=== PATIENT | male | born 1940 | race Caucasian/White ===

== ENCOUNTER → 2017-05-23 | Outpatient (CLI) | payer MEDICARE ==
[~2017-05-23] MED LIST: AGGRENOX PO; BUPR-128 PO; CITA-156 PO; EZE10 PO; FLUO-201 PO
== END ==
LOC: LAB 15:34
PROVIDERS: ATTEND Urology
DX: R97.20 Elevated prostate specific antigen [PSA] (principal)
CPT/HCPCS: 36415; 84153

== ENCOUNTER → 2017-06-08 | Outpatient (CLI) | payer MEDICARE ==
--- NOTE | 2017-06-08 14:19 | RADIOLOGY IMAGING REPORT ---
FACILITY: [facility] [place] PATIENT NAME: Raymond Pugh : 1940 MR: [id number] V: [id number] EXAM DATE: ORDERING PHYSICIAN: SHREYA BLACKBURN TECHNOLOGIST: Location: [facility] - [place] Patient: Raymond Pugh : 1940 Visit/Account:[id number] Date of Sevice: 06/08/2017 SCROTAL ULTRASOUND INDICATION: Right epididymal mass COMPARISON: None available. FINDINGS: Right testicle measures 4.8 x 2.5 x 1.8 cm in cc, AP, and transverse dimensions respectively. There is normal arterial and venous blood flow. Small hydrocele No varicocele identified. There is a simple appearing 7 mm right epididymal head cyst. Left testicle measures 4.7 x 2.4 x 2.9 cm in cc, AP, and transverse dimensions respectively. Two, pu nctate microcalcifications are noted not associated with any mass or echogenic abnormality. Left-angie ed varicocele is noted exacerbated with Valsalva. There is normal arterial and venous blood flow. No evidence of hydrocele. Left epididymis is unremarkable measuring 6.5 mm IMPRESSION: 1. There is a simple appearing 7 mm right epididymal head cyst. 2. Left-sided varicocele Report Dictated By: Alex Clarke MD at 06/08/2017 2:10 PM Report E-Signed By: Alex Clarke MD at 06/08/2017 2:13 PM WSN:[email or web address]
== END ==
LOC: US 01:59
PROVIDERS: ATTEND Urology
DX: N50.3 Cyst of epididymis (principal); I86.1 Scrotal varices
CPT/HCPCS: 76870

== ENCOUNTER → 2017-08-16 | Outpatient (REF) ==
[~2017-08-16] MED LIST changes: +ASPI-1471 PO; +BUPR-472 PO; +CYAN25004 PO; +DOXA8TAB PO; +FENO160T11 PO; +FINA5TAB67 PO; +MELA1TAB2 PO; +MULT-1203 PO; +OMEG-11 PO; +OMEG1CAP66 PO; +OMEP40CA48 PO; +VENL75CA58 PO
[2017-08-16 09:42] LABS: LDL CHOLESTEROL 93 mg/dl
== END ==
DX: Z02.9 Encounter for administrative examinations, unspecified (principal)

== ENCOUNTER → 2017-11-08 | Outpatient (CLI) | payer MEDICARE ==
[~2017-11-08] MED LIST changes: +RANI-366 PO
--- NOTE | 2017-11-08 10:47 | RADIOLOGY IMAGING REPORT ---
[place] [facility] [place] NAME: Raymond Pugh : 1940 MR: [id number] V: [id number] EXAM DATE: ORDERING PHYSICIAN: SEBAS KAHN TECHNOLOGIST: Location: [facility] Patient: Raymond Pugh : 1940 Visit/Account:[id number] Date of Sevice: 11/08/2017 CAROTID HISTORY: Bilateral carotid disease COMPARISON: August 23, 2016 FINDINGS: Grayscale, duplex and color Doppler interrogation of the extracranial carotid and vertebral arteries was performed bilateral. On the right, peak systolic velocities within the common and internal carotid arteries are 135 and 21 8 cm/sec respectively. There are scattered hard plaques identified in the right common carotid arter y. There is a moderate amount of mixed hard and soft plaque at the right carotid bulb extending into the right internal and external carotid arteries. Antegrade flow within the common, internal and ex ternal carotid arteries as well as vertebral artery. ICA/CCA ratio 1.8. On the left, peak systolic velocities within the common and internal carotid arteries are 184 and 119 cm/sec respectively. Scattered hard plaques in the left common carotid artery. There is mixed hard and soft plaque in the distal left common carotid artery left carotid bulb extending into the left i nternal carotid artery and to lesser extent left external carotid artery. Antegrade flow within the common, internal and external carotid arteries as well as vertebral artery. ICA/CCA ratio 0.7. IMPRESSION: There are scattered plaques in the common carotid arteries bilaterally with a moderate amount of mixe d hard and soft plaque at the carotid bulbs extending into the internal and external carotid arteries bilaterally. Right side is more affected than the left. Elevated peak systolic velocity of 218 cm/ s in the right ICA is consistent with a 50-69% category stenosis similar to the prior study. The pea k systolic velocity in the left ICA is consistent with less than 50% stenosis similar to the prior st udy Velocity criteria are extrapolated from diameter data as defined by the Society of Radiologists in Ul trasound Consensus Conference Radiology 2003; 229;340-346 Report Dictated By: Bonny Maxewll MD at 11/08/2017 10:30 AM Report E-Signed By: Bonny Maxwell MD at 11/08/2017 10:43 AM WSN:[email or web address]
== END ==
LOC: US 01:38
PROVIDERS: ATTEND Internal Medicine Cardiovascular Disease
DX: I65.23 Occlusion and stenosis of bilateral carotid arteries (principal)
CPT/HCPCS: 93880

== ENCOUNTER → 2017-12-16 | Outpatient (CLI) | payer MEDICARE | LOC: LAB 10:26 | PROVIDERS: ATTEND Urology | DX: R97.20 Elevated prostate specific antigen [PSA] (principal) | CPT/HCPCS: 36415; 84153 ==

== ENCOUNTER 2018-04-25 17:53 | Emergency (ER) | payer MEDICARE ==
[~2018-04-25 17:53] MED LIST changes: +CHOL10005 PO; +ESOM20CA31 PO; +ESOM40CA42 PO; +FLUT16SP19 NS; +OLM20 PO; +PNEU0.5D3 IM
--- NOTE | 2018-04-25 18:13 | ER Report ---
History and Physical Time Seen By MD: 18:13 Hx. of Stated Complaint: RIGHT SHOULDER INJURY HPI/ROS CHIEF COMPLAINT: Right shoulder injury HISTORY OF PRESENT ILLNESS: This is a 69-year-old male. Injured his right shoulder doing pull-ups. Pain anterior shoulder, worsens with rotation and forward flexion of the shoulder. Denies any numbness in the arm or hand. No history of shoulder problems in the past. Allergies: Coded Allergies: atorvastatin (Unverified Allergy, Unknown, 04/25/18) oxycodone (Unverified Allergy, Unknown, 04/25/18) propoxyphene (Unverified Allergy, Unknown, 04/25/18) acetaminophen (Verified Adverse Reaction, Unknown, Nausea and vomiting, 04/25/18) Home Meds Active Scripts Hydrocodone Bit/Acetaminophen (HYDROCODON-ACETAMINOPHEN 5-325) 1 Each Tablet, 1 EACH PO Q4H PRN for PAIN, #12 TAB 0 Refills Prov:ALICIA KELLY MD 04/25/18 Esomeprazole Magnesium (NEXIUM) 20 Mg Capsule.dr, 1-2 CAP PO QDAY for 30 Days, #60 CAP Prov:ERIN SHAIKH MD 04/05/18 Venlafaxine Hcl (EFFEXOR XR) 75 Mg Cap.er.24h, 1 CAP PO QDAY for 90 Days, #90 CAP 1 Refill Prov:ERIN SHAIKH MD 02/28/18 Fenofibrate (FENOFIBRATE) 160 Mg Tablet, 1 TAB PO QDAY for 90 Days, #90 TAB 4 Refills Prov:ERIN SHAIKH MD 02/28/18 Bupropion Hcl (WELLBUTRIN XL) 150 Mg Tab.er.24h, 1 TAB PO QDAY for 90 Days, #90 TAB 1 Refill Prov:ERIN SHAIKH MD 02/28/18 Reported Medications Cholecalciferol (Vitamin D3) (VITAMIN D3) Unknown Strength Tablet, 1 TAB PO QDAY, TAB 02/28/18 Olmesartan Medoxomil (BENICAR) 20 Mg Tablet, 1 TAB PO 02/06/18 Doxazosin Mesylate (CARDURA XL) 8 Mg Tab.er.24, 1 TAB PO QAM 08/02/17 Melatonin/Pyridoxine Hcl (B6) (MELATONIN 10 MG TABLET) 1 Each Tab.mphase, 1 TAB PO HS 08/02/17 Finasteride (FINASTERIDE) 5 Mg Tablet, 1 TAB PO QDAY 08/02/17 Discontinued Scripts Fluticasone Prop 50 Mcg Ns (FLONASE 50 MCG NS) 16 Gm [place].susp, 2 SPRAYS NS QDAY for 30 Days, #1 BOT 1 Refill Prov:ERIN SHAIKH MD 03/07/18 Reviewed Nurses Notes: Yes Hx Smoking: No Smoking Status: Former Smoker Constitutional Vital Sign - Last 24 Hours 04/25/18 04/25/18 04/25/18 04/25/18 17:57 17:59 18:08 18:23 Pulse 68 66 70 Resp 16 B/P (MAP) 167/84 167/84 (111) Pulse Ox 90 85 91 04/25/18 04/25/18 04/25/18 04/25/18 18:30 18:53 19:00 19:08 Pulse 78 67 B/P (MAP) 162/77 (105) 171/80 (110) Pulse Ox 85 93 04/25/18 19:13 Pulse 69 Pulse Ox 90 Physical Exam Gen.: Alert, no distress Musculoskeletal: Pain in the anterior shoulder with palpation. Nothing in the posterior shoulder. Nothing over the acromium, spine or clavicle. Has pain with active range of motion, especially with internal rotation and with forward flexion. With passive range of motion there is almost no pain. He has a positive nears and positive Bar sign. Cardiovascular: Normal pulses and cap refill. Neuro: Normal sensation and motor function. Skin: No bruising or rashes or lesions Medical Decision Making EKG/Imaging Imaging Right shoulder, 4 views. HISTORY: Shoulder pain after working out. COMPARISON: None. The acromioclavicular joint is mildly widened. Mild spurring is present along the inferior aspect of the acromioclavicular joint. Small marginal osteophytes, small subchondral cysts, and moderate joint space narrowing are present in the glenohumeral joint. No acute fractures. Small ossifications are present along the lateral tip of the acromion process. Surgical wires are present in the sternum. IMPRESSION: Acromioclavicular spurring which may predispose to supraspinatus impingement. Moderate glenohumeral osteoarthritis. Report Dictated By: Justice De La Cruz MD at 04/25/2018 6:38 PM ED Course/Re-evaluation ED Course Imaging negative as expected. This appears to be a rotator cuff strain. Discussed conservative management of this with the patient. Recommended follow- up with orthopedic surgery for further evaluation. Decision to Disposition Date: Apr 25, 2018 Decision to Disposition Time: 19:27 Depart Departure Latest Vital Signs Vital Signs Date Time Temp Pulse Resp B/P (MAP) Pulse Ox O2 Delivery O2 Flow Rate FiO2 04/25/18 19:13 69 90 04/25/18 19:00 171/80 (110) 04/25/18 17:57 16 Impression: Primary Impression: Rotator cuff strain Condition: Improved Disposition: HOME OR SELF-CARE Referrals: ERIN SHAIKH MD (PCP) New Scripts Hydrocodone Bit/Acetaminophen (HYDROCODON-ACETAMINOPHEN 5-325) 1 Each Tablet 1 EACH PO Q4H PRN for PAIN, #12 TAB 0 Refills Prov: ALICIA KELLY MD 04/25/18 Patient Instructions: Rotator Cuff Injury (ED) Additional Instructions: Ibuprofen 200mg over the counter tablets, take 4 tablets three times a day with food. Lortab 5/325, one every 4 hours as needed for pain. Apply ice 20 minutes every 1-2 hours while awake. Use the sling to rest the arm/shoulder for 1-2 days and then slowly begin gentle range of motion exercises. Call [facility] for follow-up. Problem Qualifiers Primary Impression: Rotator cuff strain Encounter type: initial encounter Laterality: right Qualified Codes: S46.011A - Strain of muscle(s) and tendon(s) of the rotator cuff of right shoulder, initial encounter ALICIA KELLY MD Apr 25, 2018 18:13
--- NOTE | 2018-04-25 18:45 | RADIOLOGY IMAGING REPORT ---
[place] [facility] [place] Raymond Pugh : 1940 MR: [id number] V: [id number] EXAM DATE: ORDERING PHYSICIAN: ALICIA KELLY TECHNOLOGIST: Location: [facility] Patient: Raymond Pugh : 1940 Visit/Account:[id number] Date of Sevice: 04/25/2018 Right shoulder, 4 views. HISTORY: Shoulder pain after working out. COMPARISON: None. The acromioclavicular joint is mildly widened. Mild spurring is present along the inferior aspect of the acromioclavicular joint. Small marginal osteophytes, small subchondral cysts, and moderate joint space narrowing are present in the glenohumeral joint. No acute fractures. Small ossifications are pr esent along the lateral tip of the acromion process. Surgical wires are present in the sternum. IMPRESSION: Acromioclavicular spurring which may predispose to supraspinatus impingement. Moderate glenohumeral osteoarthritis. Report Dictated By: Justice De La Cruz MD at 04/25/2018 6:38 PM Report E-Signed By: Justice De La Cruz MD at 04/25/2018 6:41 PM WSN:[id number]
[2018-04-25 19:00] VITALS: BP 171/80
[2018-04-25] MEDS ORDERED: APAP/HYDROCODONE 325/5 TAB PO ONE (19:15)
[2018-04-25] MEDS ORDERED: IBUPROFEN 800 MG TAB PO ONE (19:15)
[2018-04-25] MEDS ORDERED: ACET/HYDROC 5/325MG TH ER ONLY 2 TAB/BOTTLE PO ONE (19:15)
[2018-04-25] MEDS ORDERED: LOR5/325 PO (19:28)
== END 2018-04-25 19:38 | disposition home or self-care (01) ==
LOC: ER 18:16
DX: S46.011A Strain of muscle(s) and tendon(s) of the rotator cuff of right shoulder, initial encounter (principal)
CPT/HCPCS: 73030; 99283; A4565; A9270

== ENCOUNTER → 2018-06-28 | Outpatient (REF) ==
[~2018-06-28] MED LIST changes: +LOR5/325 PO
[2018-06-28 09:05] LABS: LDL CHOLESTEROL 93 mg/dl
== END ==
DX: Z02.9 Encounter for administrative examinations, unspecified (principal)

== ENCOUNTER → 2018-11-09 | Outpatient (CLI) | payer MEDICARE ==
[~2018-11-09] MED LIST changes: -RANI-366 PO; +RANI-54 PO
--- NOTE | 2018-11-09 16:30 | EKG ---
FACILITY: [facility] - [place] PATIENT NAME: ROSA LLOYD : [id number] MR: [id number] V: [id number] EXAM DATE: ORDERING PHYSICIAN: SABI BLACK TECHNOLOGIST: Test Reason : pre-op Blood Pressure : / mmHG Vent. 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
== END ==
LOC: RESP 10:27
PROVIDERS: ATTEND Anesthesiology
DX: Z01.812 Encounter for preprocedural laboratory examination (principal); Z01.810 Encounter for preprocedural cardiovascular examination; S83.242A Other tear of medial meniscus, current injury, left knee, initial encounter; M71.22 Synovial cyst of popliteal space [Baker], left knee; R94.31 Abnormal electrocardiogram [ECG] [EKG]
CPT/HCPCS: 93005